=== PATIENT | male | born 1960 | race Caucasian/White ===

== ENCOUNTER 2020-07-10 21:11 | Emergency (ER) | payer MEDICAID, SELFPAY ==
[2020-07-10 21:12] VITALS: BP 153/109; PULSE 66; PULSE 75; RESP 16; RESP 18; TEMP 36.3; O2SAT 92; O2SAT 93; BMI 24.5
--- NOTE | 2020-07-10 21:18 | ED.VIS.GEN ---
History of Present Illness Chief Complaint: Overdose Narrative: Patient was apparently smoking a joint, he thought it was only marijuana since he has not used other drugs in years. But then he became unresponsive. When the manager laundry department got to the scene they gave him 10 mg of Narcan intranasal, by the time the paramedics got there he was breathing much better although still slightly hypoxic in route he significantly improved now he is lucid and coherent. Past Medical History - Allergies and Home Meds Allergies/Adverse Reactions: Allergies No Known Allergies Allergy (Verified 05/20/16 07:48) Primary Care Physician: Terry Silveira III, MD [Primary Care Provider] - Past Medical History: - - Hypertension Smoking Status: Heavy Smoker (>10/day) Review of Systems All systems negative except as indicated General: Denies: Fever Eyes: Denies: Visual changes - bilaterally ENT: Denies: Sore throat Cardiovascular: Denies: Chest pain, Palpitations Respiratory: Denies: Dyspnea, Cough Gastrointestinal: Denies: Abdominal pain, Nausea Genitourinary: Denies: Dysuria Musculoskeletal: Denies: Myalgias Neurological: Reports: Weakness Endocrine: Denies: Polyuria, Polydipsia Hematologic: Denies: Easy bruising Allergy: Denies: Uticaria, Swelling of the mouth Physical Exam Vital Signs/Narrative: Vital Signs Temp Pulse Resp BP Pulse Ox 07/10/20 21:12 97.3 F L 75 16 153/109 H 93 General: - - Patient is only slightly somnolent but easily awakened, when awakened he is lucid and coherent. He is not slurring his words. Head: Normocephalic, Atraumatic Eyes: Perrl, EOMI, - - 2 mm and reactive ENT: Moist mucous membranes Neck: Supple Cardiovascular: Regular rate, Regular rhythm Respiratory: No distress Abdomen: Soft, Nontender, Nondistended Back: Normal Inspection Extremities: Nontender, No edema Skin: Normal color, No rash Neurological: Alert, Normal Strength, Normal Sensation Diagnostic/Tx/Re-eval - Medical Decision Making Patient has now significantly improved he appears well he has no chest pain shortness of breath or any other symptoms we will observe him briefly when he is fully lucid and coherent and fully awake we will discharge him. ED Disposition - Plan for ED Patient: Disposition: Home or Assisted Living Diagnosis: Opiate overdose Instructions: ED Abuse Narcotic Referrals: Terry Silveira III, MD [Primary Care Provider] - 3-5 Days
[2020-07-10] MEDS: Ondansetron 4 MG/2 ML Vial IV (21:51)
[2020-07-10 23:30] VITALS: BP 146/100; RESP 15; O2SAT 95
--- NOTE | 2020-07-10 23:31 | ED.RN ---
PT A+OX3, EDUCATED ON WRITTEN AND VERBAL DISCHARGE INSTRUCTIONS AND HOME GOING PAPERWORK. PT AND GIRLFRIEND VERBALIZE UNDERSTANDING. IV D/C AND COVERED WITH 2X2 GAUZE AND PAPER TAPE. PT DRESSES SELF AND AMBULATES OUT OF ED WITH GIRLFRIEND.
== END 2020-07-10 23:33 | disposition home or self-care (01) ==
PROVIDERS: Emergency Provider Emergency Medicine; PCP Family Medicine
DX: T40.601A Poisoning by unspecified narcotics, accidental (unintentional), initial encounter (principal); Y92.9 Unspecified place or not applicable; F17.200 Nicotine dependence, unspecified, uncomplicated
CPT/HCPCS: 96374; 99283; J2405

== ENCOUNTER 2022-08-31 16:17 | Emergency (ER) | payer MEDICAID, SELFPAY ==
[2022-08-31 16:19] VITALS: BP 143/97; PULSE 70; RESP 16; TEMP 36.3; O2SAT 99; BMI 24.3
== END 2022-08-31 18:04 | disposition left against medical advice (07) ==
LOC: ED 18:19
DX: R06.02 Shortness of breath (principal); Z53.21 Procedure and treatment not carried out due to patient leaving prior to being seen by health care provider